=== PATIENT | female | born 1955 | race Caucasian/White ===

== ENCOUNTER → 2019-04-01 | Outpatient (CLI) | payer MEDICARE ==
[~2019-04-01] MED LIST: ALBU.083IS IH; ASPI325 PO; ATOR20 PO; ATOR40TA PO; CARV3.125 PO; CLON.5 PO; CLOP75 PO; HYDACE5 PO; IBUP800 PO; IPRAIS NEB; LEVSOD75 PO; LISI5 PO; PROM25 PO; WARF2.5 PO
== END | disposition home or self-care (01) ==
LOC: LAB SHORT 14:43 → LAB 14:43
DX: L02.211 Cutaneous abscess of abdominal wall (principal); A49.02 Methicillin resistant Staphylococcus aureus infection, unspecified site
CPT/HCPCS: 87070; 87077; 87147; 87186; 87205

== ENCOUNTER → 2019-04-04 | Outpatient (CLI) | payer MEDICARE | END | disposition home or self-care (01) | LOC: LAB SHORT 17:41 → LAB 17:41 | DX: S31.109A Unspecified open wound of abdominal wall, unspecified quadrant without penetration into peritoneal cavity, initial encounter (principal); L02.211 Cutaneous abscess of abdominal wall | CPT/HCPCS: 87070; 87077; 87147; 87186; 87205 ==

== ENCOUNTER 2021-07-03 08:36 | Emergency (ER) | payer MEDICARE | END 2021-07-03 09:28 | disposition left against medical advice (07) | LOC: ER 08:36 | DX: Z53.21 Procedure and treatment not carried out due to patient leaving prior to being seen by health care provider (principal) ==

== ENCOUNTER 2021-07-22 18:01 | Inpatient (IN) | payer MEDICARE ==
[~2021-07-22] VITALS: Ht 157.5 cm; Wt 82.5 kg
[2021-07-22 19:07] LABS: Hematocrit 44.3 % (33.0-51.0); Hemoglobin 14.5 g/dL (11.5-16.0); Mean Corpuscular HGB 31.5 pg (26.0-34.0); Mean Corpuscular HGB Conc 32.7 g/dL (31.5-36.5); Mean Corpuscular Volume 96 fL (80-100); Mean Platelet Volume 11.8 fL (9.1-12.4); Platelet Count 131 K/mm3 (150-400); RDW Coefficient Variation 15.7 % (11.7-14.2); RDW Standard Deviation 56.3 fL (35.1-46.3); Red Blood Cell Count 4.61 M/mm3 (3.80-5.20); White Blood Cell Count 12.08 K/mm3 (4.00-11.30)
[2021-07-22 19:15] LABS: Creatinine, Blood 4.68 mg/dL (0.40-1.00); Potassium, Blood 3.5 mmol/L (3.5-5.5)
[2021-07-22 19:27] LABS: BAND PERCENT MAN 24 % (0-8); BASOPHILS PERCENT MAN 0 % (0-2); EOSINOPHILS PERCENT MAN 0 % (0-6); LYMPHOCYTES ABSOLUTE MAN 0.12 K/mm3 (0.84-5.20); LYMPHOCYTES PERCENT MAN 1 % (21-46); MONOCYTES PERCENT MAN 0 % (4-13); NEUTROPHILS ABSOLUTE MAN 11.95 K/mm3 (1.96-9.15); SEG NEUTROPHILS PERCENT MAN 75 % (41-73); TOTAL CELLS COUNTED 100
[2021-07-22 19:36] LABS: SARS-Cov-2 (COVID-19) PCR, MMC POSITIVE (NEGATIVE)
[2021-07-22] MEDS ORDERED: STIOLTO RESPIMAT4 G1 IH (19:54)
[2021-07-22] MEDS ORDERED: PROAIR RESPICL90 MCG IH (19:54)
[2021-07-22 20:43] LABS: Thyroid Stimulating Hormone 4.84 uIU/mL (0.360-4.800)
--- NOTE | 2021-07-22 23:34 | NUR ---
RECEIVED REPORT FROM ISSAC NELSON RN. PT TRANSPORTED TO MEDICAL FLOOR VIA GURNEY, SLIDE-TRANSFERRED TO BED. ORIENTED TO ROOM/UNIT. VS TAKEN, WNL. SITUATED IN BED. CALL LIGHT IN REACH. CORNELIUS.
[2021-07-23 06:29] LABS: BASOPHILS ABSOLUTE AUTO 0.02 K/mm3 (0.00-0.23); BASOPHILS PERCENT AUTO 0 % (0-2); EOSINOPHILS PERCENT AUTO 0 % (0-6); Hematocrit 38.7 % (33.0-51.0); Hemoglobin 12.5 g/dL (11.5-16.0); IMMATURE GRAN ABSOLUTE AUTO 0.16 K/mm3 (0.00-0.10); IMMATURE GRAN PERCENT AUTO 1 % (0-1); LYMPHOCYTES ABSOLUTE AUTO 0.41 K/mm3 (0.84-5.20); LYMPHOCYTES PERCENT AUTO 3 % (21-46); MONOCYTES ABSOLUTE AUTO 0.16 K/mm3 (0.16-1.47); MONOCYTES PERCENT AUTO 1 % (4-13); Mean Corpuscular HGB 31.7 pg (26.0-34.0); Mean Corpuscular HGB Conc 32.3 g/dL (31.5-36.5); Mean Corpuscular Volume 98 fL (80-100); Mean Platelet Volume 11.3 fL (9.1-12.4); NEUTROPHILS ABSOLUTE AUTO 11.47 K/mm3 (1.96-9.15); NEUTROPHILS PERCENT AUTO 94 % (41-73); Platelet Count 111 K/mm3 (150-400); RDW Coefficient Variation 15.5 % (11.7-14.2); RDW Standard Deviation 56.7 fL (35.1-46.3); Red Blood Cell Count 3.94 M/mm3 (3.80-5.20); White Blood Cell Count 12.22 K/mm3 (4.00-11.30)
[2021-07-23 06:47] LABS: Albumin, Blood 2.5 g/dL (3.4-5.0); Albumin/Globulin Ratio 0.5 (0.8-1.8); Bilirubin, Total 0.5 mg/dL (0.1-1.0); Bun/Creatinine Ratio 11.6 (12.0-20.0); Calcium, Blood 6.1 mg/dL (8.5-10.1); Creatinine, Blood 3.96 mg/dL (0.40-1.00); Globulin, Blood 4.9 g/dL (2.2-4.0); Potassium, Blood 3.8 mmol/L (3.5-5.5); Total Protein, Blood 7.4 g/dL (6.4-8.2)
--- NOTE | 2021-07-23 07:00 | NUR ---
SHIFT SUMMARY PT RESTING, IN NAD. NO ACUTE CONCERNS TO REPORT OVERNIGHT. O2 SATS WNL ON 4L/NC. COLOSTOMY BAG CONTINUES LEAKING, DRSG CHANGED THIS AM; AWAITING DELIVERY OF PT SUPPLIES FROM FAMILY. NO ACUTE NEEDS ASSESSED. CALL LIGHT, POSSESSIONS IN REACH, BED IN LOW AND LOCKED POSITION WITH ALARMS ON. REPORT GIVEN TO YUE HINDS.
[2021-07-23 08:01] LABS: BAND PERCENT MAN 4 % (0-8); BASOPHILS PERCENT MAN 0 % (0-2); EOSINOPHILS PERCENT MAN 0 % (0-6); LYMPHOCYTES ABSOLUTE MAN 0.12 K/mm3 (0.84-5.20); LYMPHOCYTES PERCENT MAN 1 % (21-46); MONOCYTES PERCENT MAN 0 % (4-13); NEUTROPHILS ABSOLUTE MAN 12.09 K/mm3 (1.96-9.15); SEG NEUTROPHILS PERCENT MAN 95 % (41-73); TOTAL CELLS COUNTED 100
--- NOTE | 2021-07-23 19:28 | NUR ---
SHIFT SUMMARY PT IS AOX4. PT DENIES PAIN, N/V. PT DESATS TO MID-80S WHILE ON 5 L O2 VIA NC. PT IS ONE ASSIST TO BCC. PT APPETITE IS POOR. ENHANCED ISOLATION PRECAUTIONS MAINTAINED T/O SHIFT. PT HAD EPISODE OF CHRONIC OSTOMY ULCER BLEEDING THIS SHIFT. DR. ZHANG NOTIFIED OF EVENT, THEN DR. COLE NOTIFIED AND TO ROOM TO ASSESS BLEEDING. SILVER NITRATE ORDERED TO STOP BLEED. BLEEDING HAS STOPPED AT 1840. CAUTERIZED ULCER IS THE SIZE OF A NICKEL. PT OSTOMY BAG IS LIGHTLY PLACED OVER STOMA AT THIS TIME TO ALLOW ULCER TO REST. PT IV RUNNING. NO PROCEDURES DONE THIS SHIFT. PT IS IN BED, CALL LIGHT IN REACH, LOW POSITION.
--- NOTE | 2021-07-23 22:32 | NUR ---
Pt bleeding stoma I got report at shift changed that pt need a complete bed change. Spot that is above and just to right of stoma was bleed profusely. Called in RN (Dion Beckford) due to not being able to get bleeding to stop. Colostomy bag was just laying over stoma BM running every where. Got pt cleaned up taped bag on to pt until we could get bleeding stopped.
--- NOTE | 2021-07-23 22:44 | NUR ---
LATE ENTRY: 2100 PT'S OSTOMY APPLIANCE WAS NOT INTACT. SKIN SURROUNDING OSTOMY EXCORIATED AND BLEEDING. SMALL WOUND CONTINUOUSLY BLEEDING. UNABLE TO GET BLEEDING TO STOP. DR. COLE NOTIFIED. NEW ORDERS FOR SILVER NITRATE. SILVER NITRATE APPLIED TO WOUND SITE UNTIL BLEEDING STOPPED, 1-2 MINUTES. NEW OSTOMY APPLIANCE APPLIED. FULL BED CHANGE DONE. DURING THIS TIME PT'S O2 DROPPED INTO THE 80'S. PT AT THE TIME ON 6 L VIA NC. SWITCHED PT TO AN OXYMIZER. OXYGEN TURNED UP TO 8 L TO MAINTAIN > 90%.
[2021-07-24 05:38] LABS: Hematocrit 35.6 % (33.0-51.0); Hemoglobin 11.6 g/dL (11.5-16.0); Mean Corpuscular HGB 31.5 pg (26.0-34.0); Mean Corpuscular HGB Conc 32.6 g/dL (31.5-36.5); Mean Corpuscular Volume 97 fL (80-100); Mean Platelet Volume 11.8 fL (9.1-12.4); Platelet Count 122 K/mm3 (150-400); RDW Coefficient Variation 15.5 % (11.7-14.2); RDW Standard Deviation 55.6 fL (35.1-46.3); Red Blood Cell Count 3.68 M/mm3 (3.80-5.20); White Blood Cell Count 9.56 K/mm3 (4.00-11.30)
[2021-07-24 05:59] LABS: Albumin, Blood 2.3 g/dL (3.4-5.0); Albumin/Globulin Ratio 0.5 (0.8-1.8); Bilirubin, Total 0.6 mg/dL (0.1-1.0); Bun/Creatinine Ratio 19.4 (12.0-20.0); Calcium, Blood 6.8 mg/dL (8.5-10.1); Creatinine, Blood 3.04 mg/dL (0.40-1.00); Globulin, Blood 4.7 g/dL (2.2-4.0)
[2021-07-24 06:15] LABS: BAND PERCENT MAN 17 % (0-8); BASOPHILS PERCENT MAN 0 % (0-2); EOSINOPHILS PERCENT MAN 0 % (0-6); LYMPHOCYTES ABSOLUTE MAN 0.66 K/mm3 (0.84-5.20); LYMPHOCYTES PERCENT MAN 7 % (21-46); MONOCYTES ABSOLUTE MAN 0.38 K/mm3 (0.16-1.47); MONOCYTES PERCENT MAN 4 % (4-13); SEG NEUTROPHILS PERCENT MAN 72 % (41-73); TOTAL CELLS COUNTED 100
[2021-07-24 13:04] LABS: PCO2 Arterial 30.9 mmHg (35-45); pH Blood Arterial 7.36 (7.35-7.45)
[2021-07-24 13:05] LABS: PO2 Arterial 47 mmHg (80-100)
--- NOTE | 2021-07-24 19:13 | NUR ---
SHIFT SUMMARY PT IS AO. PT IS ON 12 L VIA VENTURI MASK PER RT. PT ABG RESULTS CRITICAL O2 THIS AM. PHYSICIAN AWARE AND O2 STATUS TO BE 90-92%. PT DENIES PAIN, N/V, SOB. SURGICAL CONSULTED FOR OSTOMY ULCER--NO BLEEDING THIS SHIFT. PT APPETITE IS MODERATE. ENHANCED ISOLATION PRECAUTIONS MAINTAINED T/O SHIFT. PT DESATS WITH MOVEMENT TO AROUND 85%. PT IS IN BED, CALL LIGHT IN REACH, LOW POSITION.
[2021-07-25 05:29] LABS: Base Excess Venous -10.1 mmol/L; PCO2 Venous 35.7 mmHg (38-42); PO2 Venous 76.1 mmHg (38-42); pH Blood Venous 7.28 (7.34-7.37)
--- NOTE | 2021-07-25 05:29 | NUR ---
SHIFT SUMMARY A/O X3, FORGETFUL AT TIMES AND TAKING OFF OXYGEN MASK WITH DESATS DOWN TO 84. CURRENTLY ON 15L NRB AND WHEN PROPERLY IN PLACE, WILL SAT ABOVE 94. NO BLEEDING NOTED TO OSTOMY SITE THIS SHIFT. BED IN LOWEST POSITION WITH CALL LIGHT IN REACH. WILL CONTINUE TO MONITOR AND REPORT TO ONCOMING RN.
[2021-07-25 05:49] LABS: Hematocrit 34.8 % (33.0-51.0); Hemoglobin 11.1 g/dL (11.5-16.0); Mean Corpuscular HGB 31.5 pg (26.0-34.0); Mean Corpuscular HGB Conc 31.9 g/dL (31.5-36.5); Mean Corpuscular Volume 99 fL (80-100); Mean Platelet Volume 10.9 fL (9.1-12.4); Platelet Count 118 K/mm3 (150-400); RDW Coefficient Variation 15.8 % (11.7-14.2); RDW Standard Deviation 56.9 fL (35.1-46.3); Red Blood Cell Count 3.52 M/mm3 (3.80-5.20); White Blood Cell Count 7.18 K/mm3 (4.00-11.30)
--- NOTE | 2021-07-25 06:00 | NUR ---
UPDATE CRITICAL LOW PH OF 7.28. ATTEMPTED TO NOTIFY PACKER AND CARRY OUT PROVIDER, NO RETURN CALL RECEIVED.
[2021-07-25 06:09] LABS: Albumin, Blood 2.3 g/dL (3.4-5.0); Albumin/Globulin Ratio 0.5 (0.8-1.8); Bilirubin, Total 0.6 mg/dL (0.1-1.0); Bun/Creatinine Ratio 26.1 (12.0-20.0); C-REACTIVE PROTEIN, EXT RANGE 14.2 mg/dL (0.000-0.300); Calcium, Blood 7.7 mg/dL (8.5-10.1); Creatinine, Blood 2.34 mg/dL (0.40-1.00); Globulin, Blood 4.8 g/dL (2.2-4.0); Magnesium, Blood 2.5 mg/dL (1.6-2.4); Potassium, Blood 3.4 mmol/L (3.5-5.5); Total Protein, Blood 7.1 g/dL (6.4-8.2)
[2021-07-25 06:38] LABS: BAND PERCENT MAN 6 % (0-8); BASOPHILS PERCENT MAN 0 % (0-2); EOSINOPHILS PERCENT MAN 0 % (0-6); LYMPHOCYTES ABSOLUTE MAN 0.28 K/mm3 (0.84-5.20); LYMPHOCYTES PERCENT MAN 4 % (21-46); MONOCYTES ABSOLUTE MAN 0.35 K/mm3 (0.16-1.47); MONOCYTES PERCENT MAN 5 % (4-13); MYELOCYTE ABSOLUTE MAN 0.07 K/mm3 (0.00-0.00); MYELOCYTE PERCENT MAN 1 % (0-0); NEUTROPHILS ABSOLUTE MAN 6.46 K/mm3 (1.96-9.15); SEG NEUTROPHILS PERCENT MAN 84 % (41-73); TOTAL CELLS COUNTED 100
--- NOTE | 2021-07-25 19:35 | NUR ---
SHIFT SUMMARY PT IS INCREASINGLY CONFUSED THIS SHIFT. PT DENIES PAIN, N/V, SOB. PT INCREASED FROM NONREBREATHER TO AIRVO, AND IS NOW ON BIPAP. PT SATS 96% ON BIPAP BUT PT CONTINUES TO ATTEMPT TO REMOVE BIPAP. ENHANCED ISOLATION PRECAUTIONS MAINTAINED T/O SHIFT. PT GIVEN ONE TIME DOSE OF ATIVAN TO KEEP BIPAP ON. PT IS ONE ASSIST FOR BEDPAN PLACEMENT. PT IS IN BED, CALL LIGHT IN REACH, LOW POSITION.
[2021-07-25 20:03] LABS: Source, Urine Catheter
[2021-07-25 20:09] LABS: Appearance, Urine Clear (Clear); Bilirubin, Urine Neg (Neg); Blood, Urine 5+ (Neg); Color, Urine Yellow (P-Yellow); Glucose Qualitative, Urine Neg (Neg); Ketones, Urine Neg (Neg); Leukocyte Esterase, Urine Neg (Neg); Nitrite, Urine Neg (Neg); Protein, Urine 3+ (Neg); Specific Gravity, Urine 1.015 (1.003-1.022); Urobilinogen, Urine NORM (Normal)
[2021-07-25 20:17] LABS: Bacteria Mod /hpf; Red Blood Cells, Urine 25-50 /hpf (0-2); Squamous Epithelial Cells Few /hpf (Few)
--- NOTE | 2021-07-26 05:12 | NUR ---
SHIFT JUSTIN PT PULLING AT TUBES & LINES DURING SHIFT REPORT, 1:1 NEEDED, ANDERSON PLACED & ATIVAN ADMIN, PT REMAINS CONFUSED, SLEPT T/O THE NIGHT UNTIL WAKING FOR CARE THIS AM, IT PROJECT COORDINATOR AT BEDSIDE TO MAINTAIN BIPAP @ THIS TIME, BED ALARM ACTIVE, WILL CONT TO MONITOR UNTIL REPORT GIVEN TO DAY RN.
[2021-07-26 05:31] LABS: PCO2 Arterial 53.4 mmHg (35-45); PO2 Arterial 100 mmHg (80-100); pH Blood Arterial 7.27 (7.35-7.45)
[2021-07-26 06:38] LABS: Albumin/Globulin Ratio 0.5 (0.8-1.8); Bilirubin, Total 0.5 mg/dL (0.1-1.0); Bun/Creatinine Ratio 28.7 (12.0-20.0); Calcium, Blood 7.7 mg/dL (8.5-10.1); Creatinine, Blood 1.74 mg/dL (0.40-1.00); Globulin, Blood 4.4 g/dL (2.2-4.0); Potassium, Blood 4.2 mmol/L (3.5-5.5); Total Protein, Blood 6.4 g/dL (6.4-8.2)
[2021-07-26 06:52] LABS: Hematocrit 34.6 % (33.0-51.0); Hemoglobin 10.6 g/dL (11.5-16.0); Mean Corpuscular HGB 31.1 pg (26.0-34.0); Mean Corpuscular HGB Conc 30.6 g/dL (31.5-36.5); Mean Corpuscular Volume 102 fL (80-100); Mean Platelet Volume 11.2 fL (9.1-12.4); Platelet Count 94 K/mm3 (150-400); RDW Coefficient Variation 15.9 % (11.7-14.2); RDW Standard Deviation 59.2 fL (35.1-46.3); Red Blood Cell Count 3.41 M/mm3 (3.80-5.20); White Blood Cell Count 7.89 K/mm3 (4.00-11.30)
--- NOTE | 2021-07-26 07:10 | NUR ---
ASSUMED CARE RECEIVED REPORT FROM YUE JIMENES. PT RESTING, APPEARS AT EASE AT THIS TIME. O2 SATS STABLE ON BIPAP, FI02 100%. NO ACUTE NEEDS ASSESSED.
[2021-07-26 07:19] LABS: BAND PERCENT MAN 2 % (0-8); BASOPHILS PERCENT MAN 0 % (0-2); EOSINOPHILS PERCENT MAN 0 % (0-6); LYMPHOCYTES ABSOLUTE MAN 0.23 K/mm3 (0.84-5.20); LYMPHOCYTES PERCENT MAN 3 % (21-46); MONOCYTES ABSOLUTE MAN 0.23 K/mm3 (0.16-1.47); MONOCYTES PERCENT MAN 3 % (4-13); NEUTROPHILS ABSOLUTE MAN 7.41 K/mm3 (1.96-9.15); SEG NEUTROPHILS PERCENT MAN 92 % (41-73); TOTAL CELLS COUNTED 100
[2021-07-26 08:37] LABS: Base Excess Venous -0.5 mmol/L; Bicarbonate Venous 22.6 mmol/L (24.0-30.0); PCO2 Venous 63 mmHg (38-42); PO2 Venous 36 mmHg (38-42); pH Blood Venous 7.24 (7.34-7.37)
--- NOTE | 2021-07-26 10:01 | NUR ---
DR. AHN ROUNDING ON PT, PT DISROBING, VISIBLY AGITATED, PULLING AT BIPAP, AND NOT ALLOWING THIS NURSE TO RE-APPLY. ALSO PULLING ON COLOSTOMY. DISCUSSED PT'S MENTATION AND CODE STATUS, ORDERS RECEIVED FOR ADDITIONAL ATIVAN AND RESTRAINTS. DR. PRO ALSO AT THE BEDSIDE TO EXAMINE PT, ADDITIONAL ORDERS RECEIVED.
--- NOTE | 2021-07-26 12:30 | NUR ---
THIS PREPARING TO ADMINISTER PRN ATIVAN AND SCHEDULED 1200 MEDICATIONS TO PT, PT O2 SATS 69%, PT REMOVING BIPAP AND RESTLESS IN BED, UNABLE TO KEEP MASK ON PT DESPITE PREVIOUS DOSES OF ATIVAN. O2 SATS SLIGHTLY INCREASING, SATTING 70% ON 100% FIO2. RAPID RESPONSE TEAM INITIATED. DR. PRO AT BEDSIDE TO EVALUATE PT. ADDITIONAL ORDERS RECEIVED. AWAITING BED FOR PT TRANSFER.
--- NOTE | 2021-07-26 13:00 | NUR ---
PT REMAINS AGITATED, RESTLESS. ADDITIONAL ORDERS RECEIVED FOR ATIVAN IN ORDER FOR AN IV TO BE PLACED. O2 SATS BETWEEN 85-87% ON 100% FIO2. CONTINUING TO AWAIT BED PLACEMENT FOR TRANSFER.
[2021-07-26 13:41] LABS: Base Excess Venous -2.5 mmol/L; Bicarbonate Venous 21.7 mmol/L (24.0-30.0); PCO2 Venous 48 mmHg (38-42); PO2 Venous 40 mmHg (38-42); pH Blood Venous 7.31 (7.34-7.37)
--- NOTE | 2021-07-26 14:30 | NUR ---
BEDSIDE REPORT GIVEN TO RN REHABILITATION, PT TRANSPORTED VIA BED, ALL BELONGINGS AND BIPAP SENT WITH PT.
--- NOTE | 2021-07-26 16:00 | NUR ---
RAMP AND CARGO SUPERVISOR from Medical floor to PCU 4 Pt ICU status due to being on Precedex. Pt removing BIPAP and pulling at lines on medical floor and quickly destating. Precedex GTT started via ZAK, see flow sheet. Pt moaning and thrashing in bed. Pulling at lines and soft four point restraints applied for patient safety at 1430. Pt has right foot IV. Charge nurse Amairani attempted multiple times for PowerGlide without success, pt hard stick. ZAK 20G IV placed. BP stable and HR 100's. Langley in place.
--- NOTE | 2021-07-26 16:09 | NUR ---
Ethics consult order received and processed. Case details, medical history, and resuscitation status discussed with Dr Dilip Valdez. The principal is reported to be suffering from multisystem organ failure and has a significantly bleak clinical prognosis. Her mortality index is extremely poor, and it is thought that she will not proportionately benefit, from an aggressive plan of care. I requested that Dr Valdez facilitate a sequential organ failure assessment to give us additional prognostic insight before proceeding with an informed dissent conversation with the family. I will contact the [facility] pending the SOFA results. Thank you for this consult. Moe Rodriguez ThD
--- NOTE | 2021-07-26 19:29 | NUR ---
Shift Summary Precedex GTT 0.7 MCG/KG/HR, Pt still unable to follow commands, thrashing in bed only when care being provided. When left alone, pt resting. HR 70-60'S, NSR. SPO2 98%. On Bipap 11/09, FIO2 100%. No other changes T/O shift. Will report to oncoming shift.
[2021-07-27 03:44] LABS: BASOPHILS ABSOLUTE AUTO 0.01 K/mm3 (0.00-0.23); BASOPHILS PERCENT AUTO 0 % (0-2); EOSINOPHILS PERCENT AUTO 0 % (0-6); Hematocrit 31.8 % (33.0-51.0); Hemoglobin 10.2 g/dL (11.5-16.0); IMMATURE GRAN ABSOLUTE AUTO 0.03 K/mm3 (0.00-0.10); IMMATURE GRAN PERCENT AUTO 1 % (0-1); LYMPHOCYTES ABSOLUTE AUTO 0.15 K/mm3 (0.84-5.20); LYMPHOCYTES PERCENT AUTO 4 % (21-46); MONOCYTES ABSOLUTE AUTO 0.14 K/mm3 (0.16-1.47); MONOCYTES PERCENT AUTO 4 % (4-13); Mean Corpuscular HGB 31.9 pg (26.0-34.0); Mean Corpuscular HGB Conc 32.1 g/dL (31.5-36.5); Mean Corpuscular Volume 99 fL (80-100); Mean Platelet Volume 11.4 fL (9.1-12.4); NEUTROPHILS ABSOLUTE AUTO 3.09 K/mm3 (1.96-9.15); NEUTROPHILS PERCENT AUTO 90 % (41-73); Platelet Count 56 K/mm3 (150-400); RDW Coefficient Variation 15.6 % (11.7-14.2); RDW Standard Deviation 57.4 fL (35.1-46.3); White Blood Cell Count 3.42 K/mm3 (4.00-11.30)
[2021-07-27 04:08] LABS: Albumin, Blood 1.8 g/dL (3.4-5.0); Albumin/Globulin Ratio 0.4 (0.8-1.8); Bilirubin, Total 0.6 mg/dL (0.1-1.0); Bun/Creatinine Ratio 35.3 (12.0-20.0); Calcium, Blood 7.7 mg/dL (8.5-10.1); Creatinine, Blood 1.5 mg/dL (0.40-1.00); Globulin, Blood 4.2 g/dL (2.2-4.0); Potassium, Blood 4.4 mmol/L (3.5-5.5)
[2021-07-27 05:40] LABS: PCO2 Arterial 52.4 mmHg (35-45); PO2 Arterial 63.1 mmHg (80-100); pH Blood Arterial 7.34 (7.35-7.45)
--- NOTE | 2021-07-27 06:24 | NUR ---
SHIFT SUMMARY PATIENT REMAINED ON BIPAP THROUGHOUT SHIFT TO [facility] SPO2 ABOVE 90%. PATIENT REMAINED CONFUSED AND NONVERBAL; MOANED DURING CARE. PATIENT WOULD NOT OPEN EYES OR FOLLOW COMMANDS; MADE MULTIPLE ATTEMPTS TO PULL AT LINES AND TUBES. RT PERIPHERAL IV REMOVED D/T LEAKING. PG ATTEMPTED, BUT UNSUCCESSFUL. PRECEDEX INFUSING @ 0.3MCG/KG/HR. NO OTHER MAJOR CHANGES DURING SHIFT. WILL CONTINUE TO MONITOR UNTIL HANDOFF TO ONCOMING RN.
--- NOTE | 2021-07-27 13:04 | NUR ---
Spiritual care visit conducted. Patient's daughter Ladonna, called the spiritual care department and I called her back today. Ladonna was concerned about patient's emotional/ spiritual distress. Ladonna asked that visit patient and provide prayer. Patient is aggitated as I enter patient's rm. She is yelling and pulling at her restaints. I talk calmly to patient and, per Ladonna's request, I provide prayer. Patient continues to pull at the restaints yet seems more calm and has quieted down some. I will continue to remain availble to patient and family.
--- NOTE | 2021-07-27 15:06 | NUR ---
Per family request, I met with three of the pt's seven adult children. All are tearful and clearly struggling with Pt's poor prognosis. Reviewed pt's QOL for the past two years. Family admits that Tala has told them she is tired and ready to "go." After prayer and spiritual counselor, they have decided to allow Tala and natural, peaceful passing. After making phone calls to out of state siblings, and allowing each to say their goodbyes via phone, Family states they will be ready to medicate pt for comfort. Then, they would like bi-pap and restraints removed--both of which pt "hated." I will remain available.
--- NOTE | 2021-07-27 16:10 | NUR ---
Family meeting amoung all the chlidren and extended family. After seeing the patient they have decided to make her comfort care based on the fact that pt on 100 percent oxygen and also her qulity of life before covid was bedbound and very painfull. Physician notified pt asseses and reviewed with nursing. pt very tactile sensitive and aggitated. May not tolerate roxinol may need higher doses aof iv medications. family at bedside.
--- NOTE | 2021-07-27 19:08 | NUR ---
PT comfortable daughter at her side pt is eminent.
--- NOTE | 2021-07-27 20:09 | NUR ---
SHIFT SUMMARY PT ALERT BUT NOT ORIENTED THROUGHOUT SHIFT. PT MAONED AND WOULD SCREAM WHEN PROVIDING CARE. BP RAN SOFT THROUGHOUT SHIFT WITH SYSTOLIC PRESSURES IN THE LOW 100'S. PT 02 SATS RANGED 86-98 WHILE ON BIPAP @100%. PT PUT ON COMFORT CARE AT 1540. DAUGHTERS WERE AT BEDSIDE FOR DECISION AND REMAINED THERE FOR REMAINDER OF THIS RN SHIFT.
--- NOTE | 2021-07-27 21:42 | NUR ---
COMFORT CARE ASSESSMENT PATIENT LYING IN BED WITH DAUGHTERS AT BEDSIDE. DAUGHTER STATED PATIENT IS HAVING "GURGLING" SOUND, BUT OTHERWISE APPEARS COMFORTABLE. ATROPINE GTTS ORDERED FROM PHARMACY. DECLINED PERSONAL CARE AT THIS TIME. WILL CONTINUE TO MONITOR.
--- NOTE | 2021-07-28 00:51 | NUR ---
COMFORT CARE REASSESSMENT SECRETIONS ARE IMPROVING ACCORDING TO DAUGHTER AT BEDSIDE AFTER LAST DOSE OF ATROPINE DROPS. NO OTHER NEEDS AT THIS TIME.
--- NOTE | 2021-07-28 03:40 | NUR ---
ASYSTOLE ASYSTOLE NOTED AT 0337, CONFIRMED ABSENCE OF HEART TONES, ABSENCE OF PULSE, ABSENCE OF RESPIRATIONS AND LUNG SOUNDS. DAUGHTERS JEANNA AND LIBERTY AT BEDSIDE ARE TEARFUL. WRAPPER REWINDER AND NURSING CULINARY ART TEACHER NOTIFIED.
--- NOTE | 2021-07-28 05:16 | NUR ---
COMFORT CARE REASSESSMENT PATIENT DAUGHTER AT BEDSIDE REPORTS THAT PATIENT IS BEGINNING TO MOVE MORE FREQUENTLY AND APPEARS UNCOMFORTABLE. ATIVAN 0.5MG IV PUSH ADMINISTERED.
== END 2021-07-28 03:37 | DRG 177 ==
LOC: ER 18:01 → MEDS 20:21 → PCU 07-26 14:28
PROVIDERS: Emergency Medicine; Internal Medicine; Nurse Practitioner Acute Care; ADMIT Internal Medicine
PROC: 8E0ZXY6 Isolation (ICD-10-PCS; principal; 2021-07-22)
PROC: 3E0333Z Introduction of Anti-inflammatory into Peripheral Vein, Percutaneous Approach (ICD-10-PCS; 2021-07-22)
PROC: 5A09357 Assistance with Respiratory Ventilation, Less than 24 Consecutive Hours, Continuous Positive Airway Pressure (ICD-10-PCS; 2021-07-27)
DX: U07.1 COVID-19 (principal); J12.82 Pneumonia due to coronavirus disease 2019; J96.01 Acute respiratory failure with hypoxia; G92 Toxic encephalopathy; J18.9 Pneumonia, unspecified organism; J44.0 Chronic obstructive pulmonary disease with (acute) lower respiratory infection; Z66 Do not resuscitate; Z51.5 Encounter for palliative care; N17.9 Acute kidney failure, unspecified; E87.1 Hypo-osmolality and hyponatremia; N18.4 Chronic kidney disease, stage 4 (severe); E87.2 Acidosis; E87.0 Hyperosmolality and hypernatremia; E86.0 Dehydration; Z68.33 Body mass index [BMI] 33.0-33.9, adult; Z78.1 Physical restraint status; E66.01 Morbid (severe) obesity due to excess calories; E03.9 Hypothyroidism, unspecified; D69.6 Thrombocytopenia, unspecified; R79.1 Abnormal coagulation profile; E87.6 Hypokalemia; I12.9 Hypertensive chronic kidney disease with stage 1 through stage 4 chronic kidney disease, or unspecified chronic kidney disease; R79.89 Other specified abnormal findings of blood chemistry; I25.10 Atherosclerotic heart disease of native coronary artery without angina pectoris; M19.90 Unspecified osteoarthritis, unspecified site; F17.210 Nicotine dependence, cigarettes, uncomplicated; Z79.02 Long term (current) use of antithrombotics/antiplatelets; Z79.899 Other long term (current) drug therapy; Z90.49 Acquired absence of other specified parts of digestive tract; Z95.1 Presence of aortocoronary bypass graft
CPT/HCPCS: 36415; 36600; 71045; 76770; 80048; 80053; 81001; 82803; 83605; 83735; 83880; 84145; 84443; 85025; 85379; 86140; 86141; 87086; 94640; 94660; 94762; 96374; 96375; 99285-25; A9270; J0456; J0696; J1100; J1644; J2060; J2270; J2405; J7030; J7050; J7120; U0004